=== PATIENT | female | born 2000 | race African-American/Black ===

== ENCOUNTER 2024-02-26 11:49 | Emergency (ER) | payer MEDICAID ==
[~2024-02-26] VITALS: Ht 162.6 cm; Wt 66.0 kg
[2024-02-26 11:59] VITALS: TEMP 98.2; O2SAT 99
[2024-02-26 12:12] LABS: BASOPHILS % 0.4 % (0.0-2.0); EOSINOPHILS % 0.9 % (0.0-5.0); HEMATOCRIT. 36.4 % (36.0-48.0); HEMOGLOBIN. 12.1 g/dL (12.0-16.0); LYMPHOCYTES % 28.2 % (20.0-50.0); MEAN CORPUSCULAR HEMOGLOBIN 29.2 pg (28.0-32.0); MEAN CORPUSCULAR HGB CONC 33.2 g/dL (31.0-37.0); MEAN CORPUSCULAR VOLUME 87.9 fL (81.0-99.0); MEAN PLATELET VOLUME 10.4 fl (7.4-10.4); MONOCYTES % 9.3 % (2.0-8.0); NEUTROPHILS % 61.2 % (40.0-76.0); PLATELET 195 x1000/uL (130-400); RED BLOOD CELL COUNT 4.14 mill/uL (4.2-5.4); RED CELL DISTRIBUTION WIDTH 13.3 % (11.6-14.6); WHITE BLOOD COUNT 6.1 x1000/uL (4.5-11.0)
[2024-02-26 12:25] LABS: CHLORIDE 107 mEq/L (98-107); POTASSIUM 3.8 mEq/L (3.5-5.1); SODIUM 139 mEq/L (136-145)
[2024-02-26 12:26] LABS: CALCIUM 9.2 mg/dL (8.7-10.4); CARBON DIOXIDE 27 mEq/L (21-32)
[2024-02-26 12:31] LABS: CREATININE 0.8 mg/dL (0.6-1.0); GLUCOSE 62 mg/dL (70-105); UREA NITROGEN BLOOD 5 mg/dL (9-23)
[2024-02-26 12:36] LABS: TROPONIN I HIGH SENSITIVITY < 4 ng/L (3.0-34)
[2024-02-26] MEDS: ACETAMINOPHEN 325MG TABLET PO ONE (14:35)
[2024-02-26] MEDS: FAMOTIDINE 20MG TABLET PO ONE (14:35)
[2024-02-26 14:36] LABS: ALANINE AMINOTRANSFERASE < 7 IU/L (10-49); ALBUMIN 4.6 g/dL (3.2-4.8); ASPARTATE AMINOTRANSFERASE 19 IU/L (<34); BILIRUBIN DIRECT 0.1 mg/dL (<=3.0); BILIRUBIN TOTAL 0.4 mg/dL (0.1-1.0); PROTEIN TOTAL 7.4 g/dL (6.0-8.3)
[2024-02-26 14:48] LABS: HCG SCREEN NEGATIVE
[2024-02-26 15:11] VITALS: BP 131/77; PULSE 65; RESP 16; O2SAT 98
== END 2024-02-26 15:14 | disposition home or self-care (01) ==
LOC: ER 11:49
DX: R07.9 Chest pain, unspecified (principal); M54.9 Dorsalgia, unspecified; R10.9 Unspecified abdominal pain
CPT/HCPCS: 36415; 71045; 80048; 80076; 84484; 84703; 85025; 93005; 99285